=== PATIENT | female | born 2000 | race Caucasian/White ===

== ENCOUNTER 2018-03-31 20:10 | Emergency (ER) | payer MEDICAID ==
[~2018-03-31] VITALS: Ht 157.5 cm; Wt 60.5 kg
[~2018-03-31 20:10] MED LIST: ONDA4TAB59 PO
[2018-03-31] MEDS ORDERED: SULF1TAB49 PO (21:53)
[2018-03-31] MEDS ORDERED: MUPI15CR TOP (21:53)
[2018-03-31 22:06] VITALS: BP 119/64
== END 2018-03-31 22:08 | disposition home or self-care (01) ==
LOC: ER 20:11
DX: L01.02 Bockhart's impetigo (principal)
CPT/HCPCS: 99283

== ENCOUNTER 2018-05-23 21:45 | Emergency (ER) | payer MEDICAID, OTHER ==
[~2018-05-23] VITALS: Ht 154.9 cm; Wt 61.3 kg
[~2018-05-23 21:45] MED LIST changes: +MUPI15CR TOP
--- NOTE | 2018-05-23 22:23 | NUR ---
PT VALENTINE AT BEDSIDE. EKG ORDERED.
[2018-05-23] MEDS ORDERED: ketorolac tromethamine 15mg/ml inj. IM ONE (22:25)
[2018-05-23 22:53] VITALS: BP 138/104
== END 2018-05-23 23:44 | disposition home or self-care (01) ==
LOC: ER 21:45
DX: R07.89 Other chest pain (principal); M54.6 Pain in thoracic spine; Z79.899 Other long term (current) drug therapy
CPT/HCPCS: 93005; 96372; 99283; J1885

== ENCOUNTER 2019-03-02 13:14 | Emergency (ER) | payer MEDICAID, OTHER ==
[~2019-03-02] VITALS: Ht 157.5 cm; Wt 68.2 kg
[2019-03-02 13:20] VITALS: BP 121/69
== END 2019-03-02 13:49 | disposition home or self-care (01) ==
LOC: ER 13:14
DX: J06.9 Acute upper respiratory infection, unspecified (principal)
CPT/HCPCS: 99281

== ENCOUNTER 2023-01-03 12:07 | Emergency (ER) | payer MEDICAID ==
[~2023-01-03] VITALS: Ht 157.5 cm; Wt 67.8 kg
[2023-01-03 12:12] VITALS: BP 98/66; PULSE 99; RESP 16; O2SAT 96
[2023-01-03] MEDS ORDERED: ALBU18HF2 INH (14:30)
[2023-01-03] MEDS ORDERED: METH4TAB81 PO (14:30)
[2023-01-03 14:51] VITALS: TEMP 97.6
--- NOTE | 2023-01-03 16:43 | NUR ---
AGREE WITH LVNS ASSESSMENT, REVIEWED.
== END 2023-01-03 16:43 | disposition home or self-care (01) ==
LOC: ER 12:08
DX: J20.9 Acute bronchitis, unspecified (principal); Z20.822 Contact with and (suspected) exposure to COVID-19; Z79.899 Other long term (current) drug therapy
CPT/HCPCS: 36415; 71045; 87502; 87503; 87811; 99284; A4615

== ENCOUNTER 2023-06-13 07:50 | Emergency (ER) | payer MEDICAID ==
[~2023-06-13] VITALS: Ht 157.5 cm; Wt 62.6 kg
[~2023-06-13 07:50] MED LIST changes: +ALBU18HF2 INH; +METH4TAB81 PO
[2023-06-13 09:07] LABS: BASOPHILS % (AUTO) 0.2 % (0-1); EOSINOPHILS % (AUTO) 0 % (0-6); HEMATOCRIT 42.8 % (35.0-45.0); HEMOGLOBIN 14.6 g/dl (12.0-16.0); LYMPHOCYTES % (AUTO) 5.9 % (21-51); MEAN CORPUSCULAR HEMOGLOBIN 27.9 PG (27.0-31.0); MEAN CORPUSCULAR VOLUME 82.2 FL (78-98); MEAN PLATELET VOLUME 7.8 FL (7.4-10.4); MONOCYTES # (AUTO) 0.8 X10'3 (0-0.9); MONOCYTES % (AUTO) 4.5 % (2-12); NEUTROPHILS # (AUTO) 15.3 X10'3 (1.8-7.7); NEUTROPHILS % (AUTO) 89.4 % (42-75); PLATELET COUNT 373 X10'3 (140-440); RED BLOOD COUNT 5.21 X10'6 (4.20-5.60); RED CELL DISTRIBUTION WIDTH 13.6 % (11.5-14.5); WHITE BLOOD COUNT 17.2 X10'3 (4.5-11.0)
[2023-06-13] MEDS: diphenhydrAMINE 50 mg/ml inj IV ONE (09:19)
[2023-06-13] MEDS: metoclopramide 5 mg/ml inj IV ONE (09:19)
[2023-06-13] MEDS: normal saline 1000ml 1,000 ML IV ONE ×2 (09:19→10:32)
[2023-06-13 09:34] LABS: ALANINE AMINOTRANSFERASE 21 U/L (12-78); ALBUMIN 4.5 G/DL (3.4-5.0); ALKALINE PHOSPHATASE 79 IU/L (46-116); ANION GAP 11 (8-16); ASPARTATE AMINO TRANSFERASE 20 U/L (10-37); BILIRUBIN,TOTAL 2.2 MG/DL (0.1-1.0); BLOOD UREA NITROGEN 12 MG/DL (7-18); CALCIUM 9.7 MG/DL (8.5-10.1); CHLORIDE 101 MMOL/L (99-107); LIPASE 19 U/L (16-77); POTASSIUM 4.1 MMOL/L (3.5-5.1); SODIUM 137 MMOL/L (135-145); TOTAL CARBON DIOXIDE 25.4 MMOL/L (24-32); TOTAL PROTEIN 8.9 G/DL (6.4-8.2); eCRCL 114 ML/MIN; eGFR > 90 ML/MIN
[2023-06-13 09:37] LABS: GLUCOSE 109 MG/DL (70-104)
[2023-06-13] MEDS ORDERED: DOXY1TAB3 PO (10:14)
[2023-06-13 10:19] LABS: BILIRUBIN,URINE MODERATE (Neg); CLARITY,URINE CLOUDY (Clear); COLOR,URINE YELLOW (Yellow); GLUCOSE, URINE NEGATIVE (Neg); KETONES,URINE >=80 mg/dl (Neg); LEUKOCYTE ESTERASE ,URINE NEGATIVE (Neg); NITRITES, URINE NEGATIVE (Neg); OCCULT BLOOD,URINE TRACE-INTACT (Neg); PROTEIN,URINE 100 mg/dl (Neg)
[2023-06-13 10:23] LABS: UA COLLECTION TYPE CLN CATCH MIDSTREAM
[2023-06-13 10:28] LABS: SQUAMOUS EPITHELIAL CELL,UR MANY /LPF (FEW)
[2023-06-13 10:29] LABS: BACTERIA,URINE 4+ /HPF (Neg); RBC,URINE 0-2 /HPF (0-2)
[2023-06-13 10:43] LABS: BETA HCG,QUANTITATIVE 58674 mIU/ml
[2023-06-13 11:50] VITALS: BP 110/58; PULSE 68; RESP 16; TEMP 98.4; O2SAT 99
== END 2023-06-13 11:51 | disposition home or self-care (01) ==
LOC: ER 07:51
DX: O21.9 Vomiting of pregnancy, unspecified (principal); Z3A.13 13 weeks gestation of pregnancy; Z79.2 Long term (current) use of antibiotics; Z79.899 Other long term (current) drug therapy
CPT/HCPCS: 36415; 80053; 81001; 83690; 84702; 85025; 96361; 96374; 96375; 99284; J1200; J2765; J7030

== ENCOUNTER 2023-06-28 16:25 | Emergency (ER) | payer MEDICAID ==
[~2023-06-28] VITALS: Ht 160 cm; Wt 63.0 kg
[~2023-06-28 16:25] MED LIST changes: +DOXY1TAB3 PO
[2023-06-28] MEDS: normal saline 1000ML IV soln IVB ONE (17:32)
[2023-06-28] MEDS: ondansetron/PF 4mg/2ml inj IV ONE (17:32)
[2023-06-28 18:24] LABS: BASOPHILS % (AUTO) 0.3 % (0-1); EOSINOPHILS # (AUTO) 0.2 X10'3 (0-0.9); EOSINOPHILS % (AUTO) 1.3 % (0-6); HEMATOCRIT 34.6 % (35.0-45.0); HEMOGLOBIN 11.4 g/dl (12.0-16.0); LYMPHOCYTES # (AUTO) 1.5 X10'3 (1.1-4.8); LYMPHOCYTES % (AUTO) 11.1 % (21-51); MEAN CORPUSCULAR HEMOGLOBIN 27.3 PG (27.0-31.0); MEAN CORPUSCULAR HGB CONC 33.1 g/dL (33.0-36.5); MEAN CORPUSCULAR VOLUME 82.6 FL (78-98); MEAN PLATELET VOLUME 7.7 FL (7.4-10.4); MONOCYTES # (AUTO) 0.6 X10'3 (0-0.9); MONOCYTES % (AUTO) 4.3 % (2-12); NEUTROPHILS # (AUTO) 11.2 X10'3 (1.8-7.7); PLATELET COUNT 312 X10'3 (140-440); RED BLOOD COUNT 4.18 X10'6 (4.20-5.60); RED CELL DISTRIBUTION WIDTH 13.5 % (11.5-14.5); WHITE BLOOD COUNT 13.5 X10'3 (4.5-11.0)
[2023-06-28 18:27] LABS: HCG SERUM QL POSITIVE
[2023-06-28 18:57] LABS: BILIRUBIN,URINE SMALL (Neg); CLARITY,URINE SLIGHTLY CLOUDY (Clear); COLOR,URINE ORANGE (Yellow); GLUCOSE, URINE NEGATIVE (Neg); KETONES,URINE >=80 mg/dl (Neg); LEUKOCYTE ESTERASE ,URINE TRACE (Neg); NITRITES, URINE NEGATIVE (Neg); OCCULT BLOOD,URINE TRACE-INTACT (Neg); PH,URINE 6.5 (4.8-8.0); PROTEIN,URINE 30 mg/dl (Neg); UROBILINOGEN,URINE 0.2 E.U/dL (0.2-1.0)
[2023-06-28 19:18] LABS: URINE AMPHETAMINE SCREEN NEGATIVE (Neg); URINE BARBITUATE SCREEN NEGATIVE (Neg); URINE BENZODIAZEPINES SCREEN NEGATIVE (Neg); URINE CANNABINOID SCREEN POSITIVE (Neg); URINE COCAINE SCREEN NEGATIVE (Neg); URINE METHADONE SCREEN NEGATIVE (Neg); URINE OPIATE SCREEN NEGATIVE (Neg); URINE PHENCYCLIDINE SCREEN NEGATIVE (Neg)
[2023-06-28 19:24] LABS: UA COLLECTION TYPE NON-SPECIFIED
[2023-06-28 19:25] LABS: MUCUS STRANDS MANY /LPF (Neg); SQUAMOUS EPITHELIAL CELL,UR MANY /LPF (FEW)
[2023-06-28 19:26] LABS: BACTERIA,URINE 2+ /HPF (Neg); RBC,URINE 0-2 /HPF (0-2)
[2023-06-28 20:08] LABS: ALANINE AMINOTRANSFERASE 10 U/L (12-78); ALBUMIN 3.5 G/DL (3.4-5.0); ALBUMIN/GLOBULIN RATIO 1.1 (1.1-1.5); ALKALINE PHOSPHATASE 47 IU/L (46-116); ANION GAP 9 (8-16); ASPARTATE AMINO TRANSFERASE 12 U/L (10-37); BILIRUBIN,TOTAL 1.6 MG/DL (0.1-1.0); BLOOD UREA NITROGEN 7 MG/DL (7-18); BUN/CREATININE RATIO 14.9 (10.0-20.0); CHLORIDE 106 MMOL/L (99-107); CREATININE 0.47 MG/DL (0.40-0.90); GLUCOSE 84 MG/DL (70-104); LIPASE 20 U/L (16-77); POTASSIUM 4.2 MMOL/L (3.5-5.1); SODIUM 139 MMOL/L (135-145); TOTAL CARBON DIOXIDE 24.1 MMOL/L (24-32); TOTAL PROTEIN 6.7 G/DL (6.4-8.2); eCRCL 151 ML/MIN; eGFR > 90 ML/MIN
[2023-06-28] MEDS ORDERED: AMOX500C2 PO (20:39)
[2023-06-28] MEDS ORDERED: amoxicillin 250mg capsule PO ONE (20:40)
[2023-06-28] MEDS ORDERED: ondansetron 4mg rapidly disintigrating tab PO ONE (21:00)
[2023-06-28] MEDS ORDERED: ONDA4TAB12 PO (21:07)
[2023-06-28 21:24] VITALS: BP 107/61; PULSE 84; RESP 16; TEMP 98.6; O2SAT 100
== END 2023-06-28 21:27 | disposition home or self-care (01) ==
LOC: ER 16:26
DX: O23.42 Unspecified infection of urinary tract in pregnancy, second trimester (principal); O26.892 Other specified pregnancy related conditions, second trimester; N39.0 Urinary tract infection, site not specified; O21.0 Mild hyperemesis gravidarum; E86.0 Dehydration; Z3A.15 15 weeks gestation of pregnancy
CPT/HCPCS: 36415; 80053; 80305; 81001; 83690; 84703; 85025; 96374; 99283; J2405; J7030; 96361

== ENCOUNTER 2023-07-20 10:56 | Emergency (ER) | payer MEDICAID ==
[~2023-07-20] VITALS: Ht 157.5 cm; Wt 67.2 kg
[~2023-07-20 10:56] MED LIST changes: +ONDA4TAB12 PO
[2023-07-20 11:02] VITALS: BP 108/58; PULSE 79; RESP 16; TEMP 97.9; O2SAT 99
[2023-07-20] MEDS ORDERED: HYDR30CR79 TOP (11:35)
[2023-07-20] MEDS ORDERED: GOLYS PO (11:35)
== END 2023-07-20 11:50 | disposition home or self-care (01) ==
LOC: ER 10:56
DX: O22.40 Hemorrhoids in pregnancy, unspecified trimester (principal); K59.00 Constipation, unspecified; Z3A.00 Weeks of gestation of pregnancy not specified
CPT/HCPCS: 99282; 99283

== ENCOUNTER 2023-11-16 05:00 | Emergency (ER) | payer MEDICAID ==
[~2023-11-16] VITALS: Ht 157.5 cm; Wt 78.6 kg
[~2023-11-16 05:00] MED LIST changes: +GOLYS PO; +HYDR30CR79 TOP; +ONDA-243 PO; -ONDA4TAB12 PO
[2023-11-16 05:10] VITALS: TEMP 98.7
[2023-11-16] MEDS ORDERED: PENI500T2 PO (05:52)
[2023-11-16] MEDS: penicillin V potassium 500mg tablet PO ONE (06:09)
[2023-11-16] MEDS: normal saline 1000ml 1,000 ML IV ONE (06:10)
[2023-11-16] MEDS: ondansetron/PF 4mg/2ml inj IV ONE (06:15)
[2023-11-16 06:32] VITALS: PULSE 79
[2023-11-16 06:34] LABS: BASOPHILS % (AUTO) 0.1 % (0-1); EOSINOPHILS # (AUTO) 0.7 X10'3 (0-0.9); EOSINOPHILS % (AUTO) 4.7 % (0-6); HEMATOCRIT 37.8 % (35.0-45.0); HEMOGLOBIN 12.6 g/dl (12.0-16.0); LYMPHOCYTES % (AUTO) 12.9 % (21-51); MEAN CORPUSCULAR HEMOGLOBIN 27.3 PG (27.0-31.0); MEAN CORPUSCULAR HGB CONC 33.4 g/dL (33.0-36.5); MEAN CORPUSCULAR VOLUME 81.6 FL (78-98); MEAN PLATELET VOLUME 6.9 FL (7.4-10.4); MONOCYTES # (AUTO) 0.8 X10'3 (0-0.9); MONOCYTES % (AUTO) 5.4 % (2-12); NEUTROPHILS # (AUTO) 11.8 X10'3 (1.8-7.7); NEUTROPHILS % (AUTO) 76.9 % (42-75); PLATELET COUNT 336 X10'3 (140-440); RED BLOOD COUNT 4.63 X10'6 (4.20-5.60); RED CELL DISTRIBUTION WIDTH 13.4 % (11.5-14.5); WHITE BLOOD COUNT 15.3 X10'3 (4.5-11.0)
[2023-11-16 06:39] LABS: ALANINE AMINOTRANSFERASE 15 U/L (12-78); ALBUMIN/GLOBULIN RATIO 0.7 (1.1-1.5); ALKALINE PHOSPHATASE 95 IU/L (46-116); ANION GAP 9 (8-16); ASPARTATE AMINO TRANSFERASE 14 U/L (10-37); BILIRUBIN,TOTAL 0.9 MG/DL (0.1-1.0); BLOOD UREA NITROGEN 4 MG/DL (7-18); BUN/CREATININE RATIO 7.1 (10.0-20.0); CALCIUM 8.5 MG/DL (8.5-10.1); CHLORIDE 103 MMOL/L (99-107); CREATININE 0.56 MG/DL (0.40-0.90); GLUCOSE 89 MG/DL (70-104); POTASSIUM 3.2 MMOL/L (3.5-5.1); SODIUM 137 MMOL/L (135-145); TOTAL CARBON DIOXIDE 24.7 MMOL/L (24-32); TOTAL PROTEIN 7.2 G/DL (6.4-8.2); eCRCL 121 ML/MIN; eGFR > 90 ML/MIN
[2023-11-16] MEDS: morphine 4 MG/ML inj SYRINge IV ONE (07:07)
[2023-11-16 07:53] VITALS: BP 118/60; RESP 16; O2SAT 97
== END 2023-11-16 07:56 | disposition home or self-care (01) ==
LOC: ER 05:01
DX: O99.613 Diseases of the digestive system complicating pregnancy, third trimester (principal); K08.89 Other specified disorders of teeth and supporting structures; O21.0 Mild hyperemesis gravidarum; Z79.899 Other long term (current) drug therapy; Z3A.30 30 weeks gestation of pregnancy
CPT/HCPCS: 36415; 80053; 85025; 96361; 96374; 96375; 99284; J2270; J2405; J7030